=== PATIENT | female | born 1970 | race Caucasian/White ===

== ENCOUNTER 2022-12-28 08:01 | Outpatient (CLI) | payer BC, SELFPAY ==
--- NOTE | 2022-12-28 09:58 | W.ANESCHARGE ---
Anesthesia Charges Start Date/Time Anesthesia Start Date: 12/28/22 Anesthesia Start Time: 08:55 Stop Date/Time Anesthesia Stop Date: 12/28/22 Anesthesia Stop Time: 09:53
--- NOTE | 2022-12-28 10:02 | W.ANESCHARGE ---
Anesthesia Charges Start Date/Time Anesthesia Start Date: 12/28/22 Anesthesia Start Time: 08:55 Stop Date/Time Anesthesia Stop Date: 12/28/22 Anesthesia Stop Time: 09:53
== END 2022-12-28 08:02 | disposition home or self-care (01) ==
LOC: OP CLINIC 08:03
PROVIDERS: PCP Family Medicine; Visit Provider Internal Medicine Gastroenterology
DX: Z12.11 Encounter for screening for malignant neoplasm of colon (principal); K63.5 Polyp of colon; R13.10 Dysphagia, unspecified; K21.00 Gastro-esophageal reflux disease with esophagitis, without bleeding; K22.2 Esophageal obstruction; K44.9 Diaphragmatic hernia without obstruction or gangrene
CPT/HCPCS: 00813; 43239; 43248; 45380; 45385; 88305; J2704